=== PATIENT | male | born 1990 | race Caucasian/White ===

== ENCOUNTER 2021-06-01 17:14 | Inpatient (IN) ==
[2021-06-01 18:29] LABS: Basophils # 0.1 K/mcL (0.0-0.2); Basophils % 0.8 %; Eosinophils # 0.2 K/mcL (0.0-0.6); Eosinophils % 2.4 %; Hematocrit 42.7 % (37.5-50.1); Hemoglobin 14.6 g/dL (12.9-16.9); Immature Granulocytes % 0.3 % (0-4); Lymphocytes % 32.1 %; Mean Corpuscular HGB Conc 34.2 g/dL (31.6-35.5); Mean Corpuscular Hemoglobin 31.1 pg (28.0-33.3); Mean Platelet Volume 10.1 fL (9.4-12.4); Monocytes # 0.7 K/mcL (0.0-1.3); Monocytes % 7.2 %; Neutrophils # 5.3 K/mcL (1.6-8.9); Platelet Count 254 K/mcL (140-400); Red Blood Count 4.69 M/mcL (4.19-5.50); Red Cell Distribution Width 11.7 % (11.5-14.5); Segmented Neutrophils % 57.2 %; White Blood Count 9.2 K/mcL (4.3-11.1)
[2021-06-01 18:37] LABS: Amphetamine Screen,Urine Negative ng/mL (Cutoff=1000); Barbiturate Screen,Urine Negative ng/mL (Cutoff=200); Benzodiazepines Screen,Urine Negative ng/mL (Cutoff=200); Cannabinoid Screen,Urine Negative ng/mL (Cutoff = 50); Cocaine Screen,Urine Negative ng/mL (Cutoff= 300); Opiate Screen,Urine Negative ng/mL (Cutoff=300); Phencyclidine Screen,Urine Negative ng/mL (Cutoff=25)
[2021-06-01 18:46] LABS: Bilirubin,Urine Negative (Negative); Blood,Urine Negative (Negative); Clarity,Urine Clear (Clear); Color,Urine Colorless (Yellow); Glucose,Urine (UA) Normal (Normal); Ketones,Urine Negative (Negative); Leukocyte Esterase,Urine Negative (Negative); Nitrite,Urine Negative (Negative); Protein,Urine Negative (Neg-Trace); Specific Gravity,Urine 1.012 (1.010-1.025); Urobilinogen,Urine Normal (Normal)
[2021-06-01 18:49] LABS: Acetaminophen < 10 mcg/mL (10-20); BUN/Creatinine Ratio 17 (6-26); Blood Urea Nitrogen 15 mg/dL (6-20); Calcium 9.3 mg/dL (8.6-10.3); Carbon Dioxide 24 mEq/L (23-29); Chloride 104 mEq/L (98-107); Chol/HDL Ratio 5.3 (0-4.9); Cholesterol 208 mg/dL (< 200); Ethanol < 10 mg/dL (Less than 10); Glucose 94 mg/dL (70-105); HDL Cholesterol 39 mg/dL (40-59); LDL Cholesterol,Calculated 122 mg/dL (< 100); Osmolality,Calculated 287 (280-300); Potassium 3.8 mEq/L (3.5-5.1); Salicylate < 2.5 mg/dL (15.0-30.0); Sodium 138 mEq/L (136-145); Triglycerides 234 mg/dL (< 150); eGFR For African Americans > 60 (> 60); eGFR For Non-African Americans > 60 (> 60)
[2021-06-01 19:23] LABS: Estimated Average Glucose 114 mg/dl; Hemoglobin A1C 5.6 %
[2021-06-01 19:49] LABS: Influenza A PCR Negative (Negative); Influenza B PCR Negative (Negative); Resp. Syncytial Virus PCR Negative (Negative)
[2021-06-01 19:50] LABS: SARS-CoV-2 by PCR (In House) Negative (Negative)
[2021-06-01] MEDS ORDERED: Melatonin 3 MG TABLET PO SCH (21:00)
[2021-06-01] MEDS ORDERED: haloperidoL 5 MG TABLET PO PRN (22:19)
[2021-06-01] MEDS ORDERED: Haloperidol Lactate 5 MG/ML VIAL IM PRN (22:19)
[2021-06-01] MEDS ORDERED: *HR* LORazepam 1 MG TABLET PO PRN (22:19)
[2021-06-01] MEDS ORDERED: traZODone 50 MG TABLET PO PRN (22:19)
[2021-06-01] MEDS ORDERED: *HR* LORazepam 2 MG/ML VIAL IM PRN (22:19)
[2021-06-01] MEDS ORDERED: hydrOXYzine pamoate 25 MG CAPSULE PO PRN (22:19)
[2021-06-01] MEDS: Acetaminophen 325 MG TABLET PO PRN (23:38)
[2021-06-02] MEDS ORDERED: FLUoxetine HCl 10 MG CAPSULE PO SCH (09:00)
[2021-06-02] MEDS ORDERED: hydrOXYzine pamoate 25 MG CAPSULE PO SCH (11:00)
[2021-06-02] MEDS ORDERED: Mag Hydrox/Al Hydrox/Simeth 30 ML UDC PO PRN (11:47)
[2021-06-02] MEDS ORDERED: MOM Conc 10 ML UD.LIQ PO PRN (11:47)
[2021-06-02] MEDS: Nicotine 2 MG GUM BC PRN (12:36)
[2021-06-02] MEDS: FLUoxetine HCl Oral Soln 20 MG/5 ML UDC PO SCH (13:10)
[2021-06-02] MEDS: hydrOXYzine pamoate 25 MG CAPSULE PO SCH ×2 (16:42→20:31)
[2021-06-02] MEDS: traZODone 50 MG TABLET PO SCH (20:31)
[2021-06-02 20:51] VITALS: O2SAT 97
[2021-06-03] MEDS: hydrOXYzine pamoate 25 MG CAPSULE PO SCH ×3 (08:54→20:10)
[2021-06-03] MEDS: FLUoxetine HCl Oral Soln 20 MG/5 ML UDC PO SCH (10:01)
[2021-06-03] MEDS ORDERED: FLUoxetine HCl 10 MG CAPSULE PO ONE (11:46)
[2021-06-03] MEDS: Nicotine 2 MG GUM BC PRN ×2 (12:48→17:35)
[2021-06-03] MEDS: traZODone 50 MG TABLET PO SCH (20:10)
[2021-06-03] MEDS: Acetaminophen 325 MG TABLET PO PRN (20:11)
[2021-06-04] MEDS: hydrOXYzine pamoate 25 MG CAPSULE PO SCH ×2 (08:23→15:16)
[2021-06-04] MEDS: FLUoxetine HCl Oral Soln 20 MG/5 ML UDC PO SCH (08:23)
[2021-06-04 08:40] VITALS: BP 129/82; PULSE 68; TEMP 98.6
[2021-06-04] MEDS: Nicotine 2 MG GUM BC PRN (15:15)
== END 2021-06-04 17:20 | DRG 754 ==
LOC: EMEROOARM 17:14 → 1ANU 22:28
PROVIDERS: ADMIT Psychiatry & Neurology Psychiatry; ATTEND Psychiatry & Neurology Psychiatry

== ENCOUNTER 2021-10-12 20:25 | Inpatient (IN) ==
[2021-10-12 21:21] LABS: Basophils # 0.1 K/mcL (0.0-0.2); Basophils % 0.8 %; Eosinophils # 0.6 K/mcL (0.0-0.6); Eosinophils % 6.9 %; Hematocrit 41.9 % (37.5-50.1); Hemoglobin 13.8 g/dL (12.9-16.9); Immature Granulocytes % 0.3 % (0-4); Lymphocytes # 3.4 K/mcL (0.6-4.6); Lymphocytes % 37.8 %; Mean Corpuscular HGB Conc 32.9 g/dL (31.6-35.5); Mean Corpuscular Hemoglobin 27.5 pg (28.0-33.3); Mean Corpuscular Volume 83.5 fL (83.0-100.0); Mean Platelet Volume 9.9 fL (9.4-12.4); Monocytes # 0.7 K/mcL (0.0-1.3); Monocytes % 7.6 %; Neutrophils # 4.2 K/mcL (1.6-8.9); Platelet Count 241 K/mcL (140-400); Red Blood Count 5.02 M/mcL (4.19-5.50); Segmented Neutrophils % 46.6 %
[2021-10-12 21:41] LABS: Acetaminophen < 10 mcg/mL (10-20); BUN/Creatinine Ratio 19 (6-26); Blood Urea Nitrogen 20 mg/dL (6-20); Calcium 9.7 mg/dL (8.6-10.3); Carbon Dioxide 25 mEq/L (23-29); Chloride 103 mEq/L (98-107); Ethanol < 10 mg/dL (Less than 10); Glucose 105 mg/dL (70-105); Osmolality,Calculated 285 (280-300); Potassium 4.5 mEq/L (3.5-5.1); Salicylate < 2.5 mg/dL (15.0-30.0); Sodium 136 mEq/L (136-145); eGFR For African Americans > 60 (> 60); eGFR For Non-African Americans > 60 (> 60)
[2021-10-12 23:12] LABS: Bilirubin,Urine Negative (Negative); Blood,Urine Negative (Negative); Clarity,Urine Clear (Clear); Color,Urine Light-Yellow (Yellow); Glucose,Urine (UA) Normal (Normal); Ketones,Urine Negative (Negative); Leukocyte Esterase,Urine Negative (Negative); Nitrite,Urine Negative (Negative); Protein,Urine Trace mg/dL (Neg-Trace); Specific Gravity,Urine 1.026 (1.010-1.025); Urobilinogen,Urine Normal (Normal)
[2021-10-12 23:22] LABS: Amphetamine Screen,Urine Negative ng/mL (Cutoff=1000); Barbiturate Screen,Urine Negative ng/mL (Cutoff=200); Benzodiazepines Screen,Urine Negative ng/mL (Cutoff=200); Cannabinoid Screen,Urine Negative ng/mL (Cutoff = 50); Cocaine Screen,Urine Negative ng/mL (Cutoff= 300); Opiate Screen,Urine Negative ng/mL (Cutoff=300); Phencyclidine Screen,Urine Negative ng/mL (Cutoff=25)
[2021-10-13] MEDS ORDERED: *HR* FentaNYL (PF) 100 MCG/2 ML VIAL IVP ONE (00:34)
[2021-10-13] MEDS ORDERED: Ondansetron 4 MG/2 ML VIAL IVP ONE (00:34)
[2021-10-13 04:38] LABS: Influenza A PCR Negative (Negative); Influenza B PCR Negative (Negative); Resp. Syncytial Virus PCR Negative (Negative)
[2021-10-13 04:46] LABS: SARS-CoV-2 by PCR (In House) Negative (Negative)
[2021-10-13] MEDS ORDERED: haloperidoL 5 MG TABLET PO PRN (05:00)
[2021-10-13] MEDS ORDERED: Acetaminophen 325 MG TABLET PO PRN (05:00)
[2021-10-13] MEDS ORDERED: *HR* LORazepam 1 MG TABLET PO PRN (05:00)
[2021-10-13] MEDS ORDERED: hydrOXYzine pamoate 25 MG CAPSULE PO PRN (05:00)
[2021-10-13] MEDS ORDERED: *HR* LORazepam 2 MG/ML VIAL IM PRN (05:00)
[2021-10-13] MEDS ORDERED: Haloperidol Lactate 5 MG/ML VIAL IM PRN (05:00)
[2021-10-13] MEDS: FLUoxetine 20 MG CAPSULE PO SCH (14:15)
[2021-10-13] MEDS: Nicotine 2 MG GUM BC PRN ×2 (14:19→20:26)
[2021-10-13] MEDS: traZODone 50 MG TABLET PO PRN (20:23)
[2021-10-14] MEDS: FLUoxetine 20 MG CAPSULE PO SCH (09:07)
[2021-10-14] MEDS: Nicotine 2 MG GUM BC PRN (11:58)
[2021-10-14 13:29] LABS: Alanine Aminotransferase 14 Units/L (7-52); Albumin 4.4 g/dL (3.5-5.7); Albumin/Globulin Ratio 1.5 (1.1-2.2); Alkaline Phosphatase 52 Units/L (34-104); Aspartate Amino Transferase 13 Units/L (13-39); BUN/Creatinine Ratio 20 (6-26); Bilirubin,Total 0.6 mg/dL (0.3-1.0); Blood Urea Nitrogen 19 mg/dL (6-20); Calcium 9.7 mg/dL (8.6-10.3); Carbon Dioxide 28 mEq/L (23-29); Chloride 101 mEq/L (98-107); Globulin 2.9 g/dL (2.4-3.5); Glucose 93 mg/dL (70-105); Osmolality,Calculated 284 (280-300); Potassium 4.5 mEq/L (3.5-5.1); Sodium 136 mEq/L (136-145); Total Protein 7.3 g/dL (6.4-8.9); eGFR For African Americans > 60 (> 60); eGFR For Non-African Americans > 60 (> 60)
[2021-10-14 13:41] LABS: Thyroid Stimulating Hormone 0.571 mcIU/mL (0.340-5.600)
[2021-10-14 14:03] LABS: Hepatitis B Surface Antigen Nonreactive (Nonreactive)
[2021-10-14 14:31] LABS: Hepatitis C Virus Antibody Nonreactive (Nonreactive)
[2021-10-14 14:32] LABS: HIV-1&2 Antibody & p24 Ag Nonreactive (Nonreactive); Hepatitis B Core IgM Nonreactive (Nonreactive)
[2021-10-14 14:34] LABS: Hepatitis A Antibody IgM Nonreactive (Nonreactive)
[2021-10-14] MEDS: traZODone 50 MG TABLET PO PRN (20:15)
[2021-10-15] MEDS: FLUoxetine 20 MG CAPSULE PO SCH (09:08)
[2021-10-15] MEDS: Nicotine 2 MG GUM BC PRN (12:26)
[2021-10-15] MEDS: traZODone 50 MG TABLET PO PRN (20:40)
[2021-10-16] MEDS: FLUoxetine 20 MG CAPSULE PO SCH (09:01)
[2021-10-16] MEDS: Nicotine 2 MG GUM BC PRN ×2 (12:28→21:07)
[2021-10-16] MEDS: traZODone 50 MG TABLET PO PRN (21:07)
[2021-10-17] MEDS: FLUoxetine 20 MG CAPSULE PO SCH (08:27)
[2021-10-17] MEDS ORDERED: hydrOXYzine pamoate 25 MG CAPSULE PO PRN (08:35)
[2021-10-17 09:04] VITALS: BP 125/77; PULSE 64; TEMP 97.2; O2SAT 98
== END 2021-10-17 10:15 | disposition home or self-care (01) | DRG 754 ==
LOC: EMEROOARM 20:25 → 1ANU 10-13 04:53
PROVIDERS: ADMIT Psychiatry & Neurology Psychiatry; ATTEND Psychiatry & Neurology Psychiatry